=== PATIENT | male | born 1985 | race Hispanic/Latino ===

== ENCOUNTER 2016-10-08 15:57 | Emergency (ER) | payer MEDICAID, OTHER ==
--- NOTE | 2016-10-08 16:36 | XRay Report ---
FINAL REPORT EXAM: XR HAND 2V RT HISTORY: injury, pain,swelling TECHNIQUE: Two views of the right hand. PRIORS: None currently available. FINDINGS: Oblique fracture through the base of the 5th distal phalanx involves the articular surface. Minimal displacement noted. No other fractures identified. There is no acute dislocation. Joints in anatomical alignment. No significant arthrosis. There is no cortical destruction to suggest osteomyelitis. There are no suspicious osseous lesions. There are no radiopaque foreign objects. IMPRESSION: Fifth distal phalanx fracture.
[2016-10-08] MEDS ORDERED: MOTRIN PO ONE (19:21)
[2016-10-08 20:33] VITALS: BP 130/90
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
== END 2016-10-08 20:45 | disposition home or self-care (01) ==
LOC: ED 15:57
DX: S62.636A Displaced fracture of distal phalanx of right little finger, initial encounter for closed fracture (principal); F17.200 Nicotine dependence, unspecified, uncomplicated; Z88.5 Allergy status to narcotic agent; Y04.2XXA Assault by strike against or bumped into by another person, initial encounter; Y93.89 Activity, other specified; Y92.89 Other specified places as the place of occurrence of the external cause; Y99.8 Other external cause status